=== PATIENT | male | born 1980 | race Two or more races ===

== ENCOUNTER 2016-10-20 22:00 | Emergency (ER) | payer OTHER ==
[2016-10-20 22:12] LABS: INFLUENZA A NEG (NEG); INFLUENZA B NEG (NEG)
== END 2016-10-21 22:25 | disposition home or self-care (01) ==
LOC: CED 22:00
PROVIDERS: Physician Assistant Medical
DX: J02.9 Acute pharyngitis, unspecified (principal); F17.210 Nicotine dependence, cigarettes, uncomplicated
CPT/HCPCS: 87651; 87804; 99283